=== PATIENT | female | born 1985 | race Caucasian/White ===

== ENCOUNTER 2017-07-11 21:52 | Inpatient (IN) | payer OTHER ==
[2017-07-11] MEDS: Lactated Ringers 1,000 ML IV SCH (23:45)
[2017-07-12] MEDS ORDERED: Sodium Chloride 0.9% 10 ML Syringe FLUSH PRN (02:14)
[2017-07-12] MEDS ORDERED: Sodium Chloride 0.9% 2.5 ML Syringe FLUSH PRN (02:14)
[2017-07-12] MEDS ORDERED: Lactated Ringers 1,000 ML IV SCH ×2 (02:15→04:15)
[2017-07-12] MEDS ORDERED: Citric Acid/Sodium Citrate Solution 30 ML Cup PO SCH (02:15)
[2017-07-12] MEDS ORDERED: Oxytocin/0.9 % Sodium Chloride 30 UNIT/500 ML BAG IV SCH (02:15)
[2017-07-12] MEDS ORDERED: ceFAZolin 2 GM in Premix Bag 1 BAG IV ONE (02:17)
[2017-07-12] MEDS: Lactated Ringers 1,000 ML IV SCH (02:27)
--- NOTE | 2017-07-12 02:55 | PCM.LDHP ---
L&D History of Present Illness - General Date of Service: 07/12/17 Admit Problem/Dx: Patient Status Order with Admit Dx/Problem 07/11/17 22:16 Patient Status [ADT] Routine 07/12/17 02:14 Patient Status [ADT] Routine Admission Diagnosis/Problem Admission Diagnosis/Problem Source of Information: Patient History Limitations: Reports: No Limitations - History of Present Illness Improves with: Reports: None Worsens with: Reports: None Associated Symptoms: Reports: N - Related Data Allergies/Adverse Reactions: Allergies Allergy/AdvReac Type Severity Reaction Status Date / Time No Known Allergies Allergy Verified 07/10/17 11:51 Home Medications: Home Meds Levothyroxine 75 mcg PO DAILY 07/10/17 [History] Past Medical History Cardiovascular History: Reports: None 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/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 History: - Past Surgical History Cardiovascular Surgical History: Reports: Cardiac Ablation Social & Family History - Family History Family Medical History: Noncontributory - Tobacco Use Smoking Status *Q: Former Smoker Used Tobacco, but Quit: Yes Month Tobacco Last Used: unk - Recreational Drug Use Recreational Drug Use: No H&P Review of Systems - Review of Systems: Review Of Systems: See Below General: Reports: No Symptoms HEENT: Reports: No Symptoms Pulmonary: Reports: No Symptoms Cardiovascular: Reports: No Symptoms Gastrointestinal: Reports: No Symptoms Genitourinary: Reports: No Symptoms Musculoskeletal: Reports: No Symptoms Skin: Reports: No Symptoms Psychiatric: Reports: No Symptoms Neurological: Reports: No Symptoms Hematologic/Lymphatic: Reports: No Symptoms Immunologic: Reports: No Symptoms L&D Exam - Exam Exam: See Below - Vital Signs Weight: 104.78 kg - OB Specific Fundal Height In cm: 38 Contraction Intensity: Mild to Moderate Movement: Active Heart Tones: Present Presentation: Vertex - Exam General: Alert, Oriented HEENT: PERRLA, Conjunctiva Clear, EACs Clear, EOMI, Hearing Intact, Mucosa Moist & Mccurtain, Nares Patent, Normal Nasal Septum, Posterior Pharynx Clear, TMs Clear Neck: Supple, Trachea Midline Lungs: Clear to Auscultation, Normal Respiratory Effort Cardiovascular: Regular Rate, Regular Rhythm GI/Abdominal Exam: Normal Bowel Sounds, Soft, Non-Tender, No Organomegaly, No Distention, No Abnormal Bruit, No Mass, Pelvis Stable Rectal Exam: Normal Exam, Normal Rectal Tone Genitourinary: Normal external exam, Normal bimanual exam, Normal speculum exam Back Exam: Normal Inspection, Full Range of Motion Extremities: Normal Inspection, Normal Range of Motion, Non-Tender, No Pedal Edema, Normal Capillary Refill Skin: Warm, Dry, Intact Neurological: Cranial Nerves Intact, Reflexes Equal Bilateral Psychiatric: Alert, Normal Affect, Normal Mood - Patient Data Lab Results Last 24 hrs: Laboratory Results - last 24 hr 07/12/17 Range/Units 02:38 WBC 12.17 H (4.0-11.0) K/uL RBC 4.05 L (4.30-5.90) M/uL Hgb 13.0 (12.0-16.0) g/dL Hct 37.8 (36.0-46.0) % MCV 93.3 (80.0-98.0) fL MCH 32.1 H (27.0-32.0) pg MCHC 34.4 (31.0-37.0) g/dL RDW Std Deviation 49.1 (28.0-62.0) fl RDW Coeff of Taye 14 (11.0-15.0) % Plt Count 216 (150-400) K/uL MPV 11.50 (7.40-12.00) fL Nucleated RBC % 0.0 /100WBC Nucleated RBCs # 0 K/uL Result Diagrams: 07/12/17 02:38 Problem List Initiated/Reviewed/Updated: Yes Orders Last 24hrs: Active Orders 24 hr Category Date Time Status Patient Status [ADT] Routine ADT 07/12/17 02:14 Active Non Stress Test [RC] PER UNIT ROUTINE Care 07/11/17 22:16 Active Notify Provider Vital Signs [RC] PRN Care 07/12/17 02:15 Active Procedure Site Prep Instruct [RC] ASDIRECTED Care 07/12/17 02:14 Active Up ad Brittney [RC] ASDIRECTED Care 07/11/17 22:16 Active Vaginal Exam [RC] Click to Edit Care 07/11/17 22:16 Active Verify Patient Consent Obtain [RC] ASDIRECTED Care 07/12/17 02:14 Active Vital Signs [RC] PER UNIT ROUTINE Care 07/11/17 22:16 Active TYPE AND SCREEN [BBK] Routine Lab 07/12/17 02:38 Received Citric Acid/Sodium Citrate [Bicitra Solution] Med 07/12/17 02:15 Active 30 ml PO .ONCE Lactated Ringers [Ringers, Lactated] 1,000 ml Med 07/12/17 02:15 Active IV .BOLUS Lactated Ringers [Ringers, Lactated] 1,000 ml Med 07/11/17 23:45 Active IV ASDIRECTED Oxytocin/0.9 % Sodium Chloride [Oxytocin 30 Unit/500 ML Med 07/12/17 02:15 Active -NS] 30 unit in 500 ml IV TITRATE Sodium Chloride 0.9% [Saline Flush] Med 07/12/17 02:14 Active 10 ml FLUSH ASDIRECTED PRN Sodium Chloride 0.9% [Saline Flush] Med 07/12/17 02:14 Active 2.5 ml FLUSH ASDIRECTED PRN Peripheral IV Insertion Adult [OM.PC] Routine Oth 07/12/17 02:14 Ordered Schedule Procedure [COMM] Per Unit Routine Oth 07/12/17 02:14 Ordered Resuscitation Status Routine Resus Stat 07/11/17 22:16 Ordered Medication Orders Citric Acid/Sodium Citrate (Bicitra Solution) 30 ml PO .ONCE LUDIN Last Admin: 07/12/17 02:39 Dose: 30 ml Lactated Ringer's (Ringers, Lactated) 1,000 mls @ 999 mls/hr IV ASDIRECTED LUDIN Last Admin: 07/12/17 02:27 Dose: 999 mls/hr Infusion: 07/12/17 00:46 Dose: 999 mls/hr Admin: 07/11/17 23:45 Dose: 999 mls/hr Oxytocin/Sodium Chloride (Oxytocin 30 Unit/500 Ml-Ns) 30 unit in 500 mls @ 250 mls/hr IV TITRATE LUDIN Lactated Ringer's (Ringers, Lactated) 1,000 mls @ 500 mls/hr IV .BOLUS LUDIN Sodium Chloride (Saline Flush) 10 ml FLUSH ASDIRECTED PRN PRN Reason: Keep Vein Open Sodium Chloride (Saline Flush) 2.5 ml FLUSH ASDIRECTED PRN PRN Reason: Keep Vein Open Assessment/Plan Comment:: IUP 39+ wks previous C/section in active labor.
[2017-07-12] MEDS ORDERED: ePHEDrine 50 MG/ML SDV ONE ×2 (03:01→03:36)
[2017-07-12] MEDS ORDERED: ceFAZolin 1 GM Vial ONE (03:01)
[2017-07-12] MEDS ORDERED: Sodium Chloride 0.9% 20 ML ONE (03:01)
[2017-07-12] MEDS ORDERED: Ondansetron 4 MG/2 ML SDV ONE (03:01)
[2017-07-12] MEDS ORDERED: Oxytocin 10 Units/1 ML SDV ONE (03:01)
[2017-07-12] MEDS ORDERED: Octyl 2-Cyanoacrylate 1 Tube ONE (03:04)
[2017-07-12] MEDS ORDERED: Morphine PF 1 MG/ML Amp EPIDUR ONE (03:05)
--- NOTE | 2017-07-12 03:08 | PCM.PREANE ---
Preanesthetic Assessment - Anesthesia/Transfusion/Family Hx Anesthesia History: Prior Anesthesia Reaction (failed spinal during last c section, converted to general) Family History of Anesthesia Reaction: No - Review of Systems General: No Symptoms Pulmonary: No Symptoms Cardiovascular: No Symptoms Gastrointestinal: No Symptoms Neurological: No Symptoms - Physical Assessment NPO Status Date: 07/11/17 NPO Status Time: 19:00 Height: 1.73 m Weight: 104.78 kg ASA Class: 2E Mental Status: Alert & Oriented x3 Airway Class: Mallampati = 1 Dentition: Reports: Normal Dentition ROM/Head Extension: Full Lungs: Clear to Auscultation, Normal Respiratory Effort Cardiovascular: Regular Rate, Regular Rhythm - Lab Values: Laboratory Last Values WBC 12.17 K/uL (4.0-11.0) H 07/12/17 02:38 RBC 4.05 M/uL (4.30-5.90) L 07/12/17 02:38 Hgb 13.0 g/dL (12.0-16.0) 07/12/17 02:38 Hct 37.8 % (36.0-46.0) 07/12/17 02:38 MCV 93.3 fL (80.0-98.0) 07/12/17 02:38 MCH 32.1 pg (27.0-32.0) H 07/12/17 02:38 MCHC 34.4 g/dL (31.0-37.0) 07/12/17 02:38 RDW Std Deviation 49.1 fl (28.0-62.0) 07/12/17 02:38 RDW Coeff of Taye 14 % (11.0-15.0) 07/12/17 02:38 Plt Count 216 K/uL (150-400) 07/12/17 02:38 MPV 11.50 fL (7.40-12.00) 07/12/17 02:38 Nucleated RBC % 0.0 /100WBC 07/12/17 02:38 Nucleated RBCs # 0 K/uL 07/12/17 02:38 - Allergies Allergies/Adverse Reactions: Allergies Allergy/AdvReac Type Severity Reaction Status Date / Time No Known Allergies Allergy Verified 07/10/17 11:51 - Anesthesia Plan Pre-Op Medication Ordered: Antacids - Acknowledgements Anesthesia Type Planned: Spinal Pt an Appropriate Candidate for the Planned Anesthesia: Yes Alternatives and Risks of Anesthesia Discussed w Pt/Guardian: Yes Pt/Guardian Understands and Agrees with Anesthesia Plan: Yes Additional Comments: PMH: thyroid replacement, Scheduled repeat c section for 36 hr from now, presents in active labor. Last c section had working epidural fail prior to c/s , and spinal fail. GA used. PreAnesthesia Questionnaire Cardiovascular History: Reports: None [employer]CTION History: Reports: Other OB/BYN History: - Past Surgical History Cardiovascular Surgical History: Reports: Cardiac Ablation - SUBSTANCE USE Smoking Status *Q: Former Smoker Recreational Drug Use History: No - HOME MEDS Home Medications: Home Meds Levothyroxine 75 mcg PO DAILY 07/10/17 [History] - CURRENT (IN HOUSE) MEDS Current Meds: Current Medications Citric Acid/Sodium Citrate (Bicitra Solution) 30 ml PO .ONCE LUDIN Last Admin: 07/12/17 02:39 Dose: 30 ml Lactated Ringer's (Ringers, Lactated) 1,000 mls @ 999 mls/hr IV ASDIRECTED LUDIN Last Admin: 07/12/17 02:27 Dose: 999 mls/hr Oxytocin/Sodium Chloride (Oxytocin 30 Unit/500 Ml-Ns) 30 unit in 500 mls @ 250 mls/hr IV TITRATE LUDIN Lactated Ringer's (Ringers, Lactated) 1,000 mls @ 500 mls/hr IV .BOLUS LUDIN Sodium Chloride (Saline Flush) 10 ml FLUSH ASDIRECTED PRN PRN Reason: Keep Vein Open Sodium Chloride (Saline Flush) 2.5 ml FLUSH ASDIRECTED PRN PRN Reason: Keep Vein Open Discontinued Medications Cefazolin Sodium/Dextrose 2 gm (/ Premix) 50 mls @ 100 mls/hr IV ONETIME ONE Stop: 07/12/17 02:46
[2017-07-12] MEDS ORDERED: Nalbuphine 10 MG/1 ML Vial IVPUSH PRN (03:54)
[2017-07-12] MEDS ORDERED: Acetaminophen/oxyCODONE 325-5 MG Tab PO PRN ×2 (03:54→13:13)
[2017-07-12] MEDS ORDERED: fentaNYL 100 MCG/2 ML SDV IVPUSH PRN (03:54)
[2017-07-12] MEDS ORDERED: Ibuprofen 800 MG Tab PO PRN (04:07)
[2017-07-12] MEDS ORDERED: Ondansetron 4 MG/2 ML SDV IV PRN (04:07)
[2017-07-12] MEDS ORDERED: Bisacodyl 10 MG Supp RECTAL PRN (04:07)
[2017-07-12] MEDS ORDERED: Lanolin 100% Cream 7 GM Tube TOP PRN (04:07)
[2017-07-12] MEDS ORDERED: diphenhydrAMINE 50 MG/ML SDV IVPUSH PRN (04:07)
--- NOTE | 2017-07-12 04:10 | PCM.OPNOTE ---
- General Post-Op/Procedure Note Date of Surgery/Procedure: 07/12/17 Operative Procedure(s): Repeat C/Section Pre Op Diagnosis: IUP 39+4 previous C/section Post-Op Diagnosis: Same Anesthesia Technique: Spinal Primary Surgeon: Flip Roach Exposure Machine Operator: Alia Lobato EBL in mLs: 700 Complications: None Condition: Good
[2017-07-12] MEDS: Ketorolac 30 MG/ML SDV IVPUSH SCH ×4 (04:35→22:18)
--- NOTE | 2017-07-12 07:25 | PCM.POSTAN ---
POST ANESTHESIA ASSESSMENT - MENTAL STATUS Mental Status: Alert, Oriented - RESPIRATORY Respiratory Status: Respiratory Rate WNL, Airway Patent, O2 Saturation Stable - CARDIOVASCULAR CV Status: Pulse Rate WNL, Blood Pressure Stable - GASTROINTESTINAL GI Status: No Symptoms - POST OP HYDRATION Hydration Status: Adequate & Stable
[2017-07-12] MEDS: Docusate Sodium 100 MG Cap PO SCH ×2 (08:33→22:15)
--- NOTE | 2017-07-12 09:08 | OR ---
SURGEON: Flip Roach MD DATE OF PROCEDURE: 07/12/2017 PREOPERATIVE DIAGNOSIS: Intrauterine , 39+ four, previous section. POSTOPERATIVE DIAGNOSIS: Intrauterine , 39+ four, previous section. OPERATION PERFORMED: Repeat low transverse section. TUBE CUTTER: Alia Lobato CNM. ANESTHESIA: Spinal, Gonzalo Joy and Dr. Mason. ESTIMATED BLOOD LOSS: 700 mL. COMPLICATIONS: None. INDICATIONS FOR SURGERY: This patient is 31. She had a previous section. She is para 1-0-1-1. She is scheduled for elective repeat section on July 13, 2017. She has presented today to Labor and Delivery in active labor. A decision is made to repeat her section today. PROCEDURE IN DETAIL: The patient was brought to the OR, properly identified, and after adequate time- out is taken, the patient was prepped and draped in sterile fashion as usual with a Cruz catheter in the bladder. Low transverse Pfannenstiel skin incision was done through the old scar. Zachary's fascia and rectus fascia were opened in direction of the incision. The 2 recti muscles were and the peritoneal cavity was entered. Bladder flap was raised in the usual manner pushing the bladder away from the lower uterine segment. Low transverse uterine incision was done and extended manually with the hand. Fetus was in a vertex position, delivered without any problem, cried immediately, handed to Dr. Sharp, who is the machine silver stripper on-call, who was present at the time of the section. The score later on reported to be 7 and 9. The weight is not available at this time. The placenta delivered spontaneous complete and intact, and then repair of the lower uterine segment was done with #1 Vicryl continuous interlocking, and then reperitonealization done with 3-0 Vicryl continuous, and then the peritoneal cavity evacuated completely from old blood and blood clot and closed with 3-0 Vicryl continuous. The rectus fascia was closed with #1 PDS double strand continuous, the Zachary's fascia with 3-0 Vicryl continuous, the skin closed in a subcuticular fashion with 3-0 Vicryl on a Flex needle and Dermabond was used. Instrument and sponge count was correct. The patient tolerated the procedure well and went to recovery room in stable general condition. ODALYS / AZRA /[id number]
--- NOTE | 2017-07-12 18:09 | PCM48HPAN ---
Post Anesthesia Note - EVALUATION WITHIN 48HRS OF ANESTHETIC Vital Signs in Normal Range: Yes Patient Participated in Evaluation: Yes Respiratory Function Stable: Yes Airway Patent: Yes Cardiovascular Function Stable: Yes Hydration Status Stable: Yes Pain Control Satisfactory: Yes Nausea and Vomiting Control Satisfactory: Yes Mental Status Recovered: Yes
[2017-07-12] MEDS: Acetaminophen/oxyCODONE 325-5 MG Tab PO PRN (20:15)
[2017-07-13] MEDS: Ketorolac 30 MG/ML SDV IVPUSH SCH (04:06)
--- NOTE | 2017-07-13 07:31 | PCM.DCSUM1 ---
Discharge Summary - Hospital Course Free Text/Narrative:: Discharge home with . Follow up in 10 days for incision check and then 6 weeks post or sooner if needed. - Discharge Data Discharge Date: 07/13/17 Discharge Disposition: Home, Self-Care 01 Condition: Good - Patient Summary/Data Operative Procedure(s) Performed: Repeat C/Section - Patient Instructions Diet: Usual Diet as Tolerated Activity: As Tolerated, No Strenuous Activities, Rest and Relax Today Driving: May Drive Today Showering/Bathing: May Shower Wound/Incision Care: Keep Operative Site/Wound Site Clean and Dry Notify Provider of: Fever, Increased Pain, Swelling and Redness, Drainage, Nausea and/or Vomiting Other/Special Instructions: Discharge home with . Follow up in 10 days for incision check and then 6 weeks post or sooner if needed. - Discharge Plan Prescriptions/Med Rec: Acetaminophen/oxyCODONE [Percocet 325-5 MG] 1 - 2 tab PO Q4H PRN #30 tablet PRN Reason: Pain (Moderate 4-6) Ibuprofen [IJD: Ibuprofen] 800 mg PO Q8H PRN #90 tablet PRN Reason: mild pain or fever Home Medications: Home Meds Levothyroxine 75 mcg PO DAILY 07/10/17 [History] Acetaminophen/oxyCODONE [Percocet 325-5 MG] 1 - 2 tab PO Q4H PRN #30 tablet 06/29 [Rx] Ibuprofen [IJD: Ibuprofen] 800 mg PO Q8H PRN #90 tablet 07/13/17 [Rx] Referrals: [facility] [Outside] Flip Roach MD [Physician] - (1 week- July 19 @ 1:30am w/ Dr. Roach 6 week- August 18 @ 9:30am w/ Dr. Roach ) - General Info Date of Service: 07/13/17 Admission Dx/Problem (Free Text: Patient Status Order with Admit Dx/Problem 07/11/17 22:16 Patient Status [ADT] Routine 07/12/17 02:14 Patient Status [ADT] Routine Admission Diagnosis/Problem Admission Diagnosis/Problem Functional Status: Reports: Pain Controlled, Tolerating Diet, Ambulating, Urinating - Review of Systems General: Reports: No Symptoms HEENT: Reports: No Symptoms Pulmonary: Reports: No Symptoms Cardiovascular: Reports: No Symptoms Gastrointestinal: Reports: No Symptoms Genitourinary: Reports: No Symptoms Musculoskeletal: Reports: No Symptoms Skin: Reports: No Symptoms Neurological: Reports: No Symptoms Psychiatric: Reports: No Symptoms - Patient Data Vitals - Most Recent: Last Vital Signs Temp 36.6 C 07/13/17 04:00 Pulse 92 07/13/17 04:00 Resp 16 07/13/17 04:00 BP 115/59 L 07/13/17 04:00 Pulse Ox 97 07/13/17 04:00 Weight - Most Recent: 104.78 kg Lab Results - Last 24 hrs: Laboratory Results - last 24 hr 07/12/17 07/13/17 Range/Units 05:50 04:31 Hgb 12.3 (12.0-16.0) g/dL Hct 36.8 (36.0-46.0) % Screen NEGATIVE (NEGATIVE) RhIG Candidate? YES Rhogam Indicated YES, BABY RH POS H Med Orders - Current: Current Medications Bisacodyl (Dulcolax) 10 mg RECTAL .ONCE PRN PRN Reason: Constipation Citric Acid/Sodium Citrate (Bicitra Solution) 30 ml PO .ONCE [facility] Last Admin: 07/12/17 02:39 Dose: 30 ml Diphenhydramine HCl (Benadryl) 25 mg IVPUSH Q6H PRN PRN Reason: Itching or Nausea Docusate Sodium (Colace) 100 mg PO BID [facility] Last Admin: 07/12/17 22:15 Dose: 100 mg Emollient Ointment (Lansinoh Hpa) 0 gm TOP ASDIRECTED PRN PRN Reason: Sore Nipples Lactated Ringer's (Ringers, Lactated) 1,000 mls @ 999 mls/hr IV ASDIRECTED [facility] Last Admin: 07/12/17 02:27 Dose: 999 mls/hr Oxytocin/Sodium Chloride (Oxytocin 30 Unit/500 Ml-Ns) 30 unit in 500 mls @ 250 mls/hr IV TITRATE [facility] Lactated Ringer's (Ringers, Lactated) 1,000 mls @ 500 mls/hr IV .BOLUS [facility] Lactated Ringer's (Ringers, Lactated) 1,000 mls @ 125 mls/hr IV ASDIRECTED [facility] Last Admin: 07/12/17 07:35 Dose: 125 mls/hr Ibuprofen (Motrin) 800 mg PO Q8H PRN PRN Reason: mild pain or fever Ondansetron HCl (Zofran) 4 mg IV Q4H PRN PRN Reason: Nausea/Vomiting Oxycodone/Acetaminophen (Percocet 325-5 Mg) 1 tab PO ONETIME PRN PRN Reason: Pain (moderate 4-6) Oxycodone/Acetaminophen (Percocet 325-5 Mg) 1 tab PO Q4H PRN PRN Reason: Pain (moderate 4-6) Last Admin: 07/12/17 20:15 Dose: 1 tab Oxycodone/Acetaminophen (Percocet 325-5 Mg) 2 tab PO Q4H PRN PRN Reason: Pain (moderate 4-6) Sodium Chloride (Saline Flush) 10 ml FLUSH ASDIRECTED PRN PRN Reason: Keep Vein Open Sodium Chloride (Saline Flush) 2.5 ml FLUSH ASDIRECTED PRN PRN Reason: Keep Vein Open Discontinued Medications Cefazolin Sodium (Ancef) Confirm Administered Dose 2 gm .ROUTE .STK-MED ONE Stop: 07/12/17 03:02 Ephedrine Sulfate (Ephedrine Sulfate) Confirm Administered Dose 50 mg .ROUTE .STK-MED ONE Stop: 07/12/17 03:02 Ephedrine Sulfate (Ephedrine Sulfate) Confirm Administered Dose 50 mg .ROUTE .STK-MED ONE Stop: 07/12/17 03:37 Fentanyl (Sublimaze) 50 mcg IVPUSH Q5M PRN PRN Reason: Pain (severe 7-10) Stop: 07/13/17 03:54 Last Admin: 07/12/17 06:22 Dose: 50 mcg Cefazolin Sodium/Dextrose 2 gm (/ Premix) 50 mls @ 100 mls/hr IV ONETIME ONE Stop: 07/12/17 02:46 Last Admin: 07/12/17 08:18 Dose: Not Given Sodium Chloride (Normal Saline) Confirm Administered Dose 20 mls @ as directed .ROUTE .STK-MED ONE Stop: 07/12/17 03:02 Ibuprofen (Motrin) 800 mg PO Q8H PRN PRN Reason: mild pain or fever Ketorolac Tromethamine (Toradol) 30 mg IVPUSH Q6H LUDIN Stop: 07/13/17 04:01 Last Admin: 07/13/17 04:06 Dose: 30 mg Nalbuphine HCl (Nubain) 2.5 mg IVPUSH Q3H PRN PRN Reason: Pruritis Stop: 07/13/17 03:54 Last Admin: 07/12/17 08:33 Dose: 2.5 mg Octyl Cyanoacrylate (Dermabond Advance) Confirm Administered Dose 1 applic .ROUTE .STK-MED ONE Stop: 07/12/17 03:05 Ondansetron HCl (Zofran) Confirm Administered Dose 4 mg .ROUTE .STK-MED ONE Stop: 07/12/17 03:02 Oxycodone/Acetaminophen (Percocet 325-5 Mg) 1 tab PO Q4H PRN PRN Reason: Pain Stop: 07/13/17 03:50 Last Admin: 07/12/17 13:28 Dose: 1 tab Oxytocin (Pitocin) Confirm Administered Dose 20 unit .ROUTE .STK-MED ONE Stop: 07/12/17 03:02 - Exam General: Reports: Alert, Oriented, Cooperative, No Acute Distress Lungs: Reports: Clear to Auscultation, Normal Respiratory Effort Cardiovascular: Reports: Regular Rate, Regular Rhythm, No Murmurs GI/Abdominal Exam: Soft, No Organomegaly, No Distention (Female) Exam: Vaginal Bleeding Rectal (Female) Exam: Deferred Back Exam: Reports: Full Range of Motion Extremities: Normal Range of Motion, Non-Tender, No Pedal Edema, Normal Capillary Refill Wound/Incisions: Reports: Healing Well, Dressing Dry and Intact, No Drainage Neurological: Reports: No New Focal Deficit, Normal Gait, Normal Speech, Normal Tone Psy/Mental Status: Reports: Alert, Normal Affect, Normal Mood *Q Meaningful Use (DIS) - VTE *Q VTE Criteria *Q: - Stroke *Q Stroke Criteria *Q: - AMI *Q AMI Criteria *Q:
[2017-07-13] MEDS: Docusate Sodium 100 MG Cap PO SCH ×2 (08:17→20:57)
[2017-07-13] MEDS: Ibuprofen 800 MG Tab PO PRN ×2 (10:18→16:51)
[2017-07-13] MEDS: Acetaminophen/oxyCODONE 325-5 MG Tab PO PRN ×3 (11:42→20:57)
[2017-07-14] MEDS: Acetaminophen/oxyCODONE 325-5 MG Tab PO PRN ×2 (03:07→08:09)
[2017-07-14] MEDS: Ibuprofen 800 MG Tab PO PRN (03:18)
--- NOTE | 2017-07-14 07:52 | PCM.DCSUM1 ---
Discharge Summary - Hospital Course Free Text/Narrative:: Discharge home with , follow up in 1 week for incision check and 6 weeks for post visit. Come sooner if needed. - Discharge Data Discharge Date: 07/14/17 Discharge Disposition: Home, Self-Care 01 Condition: Good - Discharge Diagnosis/Problem(s) (1) delivery delivered SNOMED Code(s): 121508587 ICD Code: O82 - ENCOUNTER FOR DELIVERY WITHOUT INDICATION Status: Acute Priority: High Current Visit: Yes - Patient Summary/Data Operative Procedure(s) Performed: Repeat C/Section - Patient Instructions Diet: Usual Diet as Tolerated Activity: As Tolerated, No Strenuous Activities, Rest and Relax Today Driving: May Drive Today Showering/Bathing: May Shower Wound/Incision Care: Keep Operative Site/Wound Site Clean and Dry Notify Provider of: Fever, Increased Pain, Swelling and Redness, Drainage, Nausea and/or Vomiting Other/Special Instructions: Discharge home with . Follow up in 10 days for incision check and then 6 weeks post or sooner if needed. - Discharge Plan Prescriptions/Med Rec: Acetaminophen/oxyCODONE [Percocet 325-5 MG] 1 - 2 tab PO Q4H PRN #30 tablet PRN Reason: Pain (Moderate 4-6) Ibuprofen [IJD: Ibuprofen] 800 mg PO Q8H PRN #90 tablet PRN Reason: mild pain or fever Home Medications: Home Meds Levothyroxine 75 mcg PO DAILY 07/10/17 [History] Acetaminophen/oxyCODONE [Percocet 325-5 MG] 1 - 2 tab PO Q4H PRN #30 tablet 06/29 [Rx] Ibuprofen [IJD: Ibuprofen] 800 mg PO Q8H PRN #90 tablet 07/13/17 [Rx] Referrals: [facility] [Outside] Flip Roach MD [Physician] - (1 week- July 19 @ 1:30am w/ Dr. Roach 6 week- August 18 @ 9:30am w/ Dr. Roach ) - General Info Date of Service: 07/14/17 Admission Dx/Problem (Free Text: Patient Status Order with Admit Dx/Problem 07/11/17 22:16 Patient Status [ADT] Routine 07/12/17 02:14 Patient Status [ADT] Routine Admission Diagnosis/Problem Admission Diagnosis/Problem Functional Status: Reports: Pain Controlled, Tolerating Diet, Ambulating, Urinating - Review of Systems General: Reports: No Symptoms HEENT: Reports: No Symptoms Pulmonary: Reports: No Symptoms Cardiovascular: Reports: No Symptoms Gastrointestinal: Reports: No Symptoms Genitourinary: Reports: No Symptoms Musculoskeletal: Reports: No Symptoms Skin: Reports: No Symptoms Neurological: Reports: No Symptoms Psychiatric: Reports: No Symptoms - Patient Data Vitals - Most Recent: Last Vital Signs Temp 36.4 C 07/14/17 04:00 Pulse 86 07/14/17 04:00 Resp 15 07/14/17 04:00 BP 116/69 07/14/17 04:00 Pulse Ox 96 07/14/17 04:00 Weight - Most Recent: 104.78 kg Med Orders - Current: Current Medications Bisacodyl (Dulcolax) 10 mg RECTAL .ONCE PRN PRN Reason: Constipation Citric Acid/Sodium Citrate (Bicitra Solution) 30 ml PO .ONCE [facility] Last Admin: 07/12/17 02:39 Dose: 30 ml Diphenhydramine HCl (Benadryl) 25 mg IVPUSH Q6H PRN PRN Reason: Itching or Nausea Docusate Sodium (Colace) 100 mg PO BID [facility] Last Admin: 07/13/17 20:57 Dose: 100 mg Emollient Ointment (Lansinoh Hpa) 0 gm TOP ASDIRECTED PRN PRN Reason: Sore Nipples Last Admin: 07/13/17 10:24 Dose: 7 gm Lactated Ringer's (Ringers, Lactated) 1,000 mls @ 999 mls/hr IV ASDIRECTED [facility] Last Admin: 07/12/17 02:27 Dose: 999 mls/hr Oxytocin/Sodium Chloride (Oxytocin 30 Unit/500 Ml-Ns) 30 unit in 500 mls @ 250 mls/hr IV TITRATE [facility] Lactated Ringer's (Ringers, Lactated) 1,000 mls @ 500 mls/hr IV .BOLUS [facility] Lactated Ringer's (Ringers, Lactated) 1,000 mls @ 125 mls/hr IV ASDIRECTED [facility] Last Admin: 07/12/17 07:35 Dose: 125 mls/hr Ibuprofen (Motrin) 800 mg PO Q8H PRN PRN Reason: mild pain or fever Last Admin: 07/14/17 03:18 Dose: 800 mg Ondansetron HCl (Zofran) 4 mg IV Q4H PRN PRN Reason: Nausea/Vomiting Oxycodone/Acetaminophen (Percocet 325-5 Mg) 1 tab PO ONETIME PRN PRN Reason: Pain (moderate 4-6) Last Admin: 07/13/17 08:18 Dose: 1 tab Oxycodone/Acetaminophen (Percocet 325-5 Mg) 1 tab PO Q4H PRN PRN Reason: Pain (moderate 4-6) Last Admin: 07/14/17 03:07 Dose: 1 tab Oxycodone/Acetaminophen (Percocet 325-5 Mg) 2 tab PO Q4H PRN PRN Reason: Pain (moderate 4-6) Last Admin: 07/13/17 11:42 Dose: 2 tab Sodium Chloride (Saline Flush) 10 ml FLUSH ASDIRECTED PRN PRN Reason: Keep Vein Open Sodium Chloride (Saline Flush) 2.5 ml FLUSH ASDIRECTED PRN PRN Reason: Keep Vein Open Discontinued Medications Cefazolin Sodium (Ancef) Confirm Administered Dose 2 gm .ROUTE .STK-MED ONE Stop: 07/12/17 03:02 Ephedrine Sulfate (Ephedrine Sulfate) Confirm Administered Dose 50 mg .ROUTE .STK-MED ONE Stop: 07/12/17 03:02 Ephedrine Sulfate (Ephedrine Sulfate) Confirm Administered Dose 50 mg .ROUTE .STK-MED ONE Stop: 07/12/17 03:37 Fentanyl (Sublimaze) 50 mcg IVPUSH Q5M PRN PRN Reason: Pain (severe 7-10) Stop: 07/13/17 03:54 Last Admin: 07/12/17 06:22 Dose: 50 mcg Cefazolin Sodium/Dextrose 2 gm (/ Premix) 50 mls @ 100 mls/hr IV ONETIME ONE Stop: 07/12/17 02:46 Last Admin: 07/12/17 08:18 Dose: Not Given Sodium Chloride (Normal Saline) Confirm Administered Dose 20 mls @ as directed .ROUTE .STK-MED ONE Stop: 07/12/17 03:02 Ibuprofen (Motrin) 800 mg PO Q8H PRN PRN Reason: mild pain or fever Ketorolac Tromethamine (Toradol) 30 mg IVPUSH Q6H LUDIN Stop: 07/13/17 04:01 Last Admin: 07/13/17 04:06 Dose: 30 mg Nalbuphine HCl (Nubain) 2.5 mg IVPUSH Q3H PRN PRN Reason: Pruritis Stop: 07/13/17 03:54 Last Admin: 07/12/17 08:33 Dose: 2.5 mg Octyl Cyanoacrylate (Dermabond Advance) Confirm Administered Dose 1 applic .ROUTE .STK-MED ONE Stop: 07/12/17 03:05 Ondansetron HCl (Zofran) Confirm Administered Dose 4 mg .ROUTE .STK-MED ONE Stop: 07/12/17 03:02 Oxycodone/Acetaminophen (Percocet 325-5 Mg) 1 tab PO Q4H PRN PRN Reason: Pain Stop: 07/13/17 03:50 Last Admin: 07/12/17 13:28 Dose: 1 tab Oxytocin (Pitocin) Confirm Administered Dose 20 unit .ROUTE .STK-MED ONE Stop: 07/12/17 03:02 - Exam General: Reports: Alert, Oriented, Cooperative, No Acute Distress Lungs: Reports: Normal Respiratory Effort GI/Abdominal Exam: Soft, Tender (at incision site) (Female) Exam: Vaginal Bleeding Back Exam: Reports: Full Range of Motion Extremities: Normal Range of Motion, Non-Tender, No Pedal Edema, Normal Capillary Refill Skin: Reports: Warm, Dry, Intact Wound/Incisions: Reports: Healing Well, No Drainage Neurological: Reports: No New Focal Deficit, Normal Gait, Normal Speech, Normal Tone Psy/Mental Status: Reports: Alert, Normal Affect, Normal Mood *Q Meaningful Use (DIS) - VTE *Q VTE Criteria *Q: - Stroke *Q Stroke Criteria *Q: - AMI *Q AMI Criteria *Q:
[2017-07-14] MEDS: Docusate Sodium 100 MG Cap PO SCH (09:37)
== END 2017-07-14 10:50 | disposition home or self-care (01) | DRG 766 ==
LOC: MW.OBCHECK 21:52 → MW.OB 21:54 → MW.OBCHECK 07-12 02:14 → MW.OB 07-12 02:14
PROVIDERS: ADMIT Obstetrics & Gynecology; ATTEND Obstetrics & Gynecology
PROC: 10D00Z1 Extraction of Products of Conception, Low, Open Approach (ICD-10-PCS; principal; 2017-07-12)
DX: O34.211 Maternal care for low transverse scar from previous cesarean delivery (principal); Z3A.39 39 weeks gestation of pregnancy; Z37.0 Single live birth
CPT/HCPCS: 01961; 36415; 59025; 85014; 85018; 85027; 85460; 86850; 86900; 86901; A9270-GY; J0690; J1885; J2274; J2300; J2405; J2590; J2790; J3010; J7120